=== PATIENT | female | born 1980 | race Hispanic/Latino ===

== ENCOUNTER 2019-12-06 09:12 | Outpatient (CLI) | payer OTHER ==
--- NOTE | 2019-12-06 10:47 | ULT ---
ULTRASOUND ABDOMEN: HISTORY: Right lower quadrant pain. FINDINGS: The liver demonstrates increased echogenicity consistent with fatty infiltration. No focal mass or i ntrahepatic dilatation is seen. The spleen is normal measuring 10.4 cm in length. No gallstones, ga llbladder wall thickening, or pericholecystic fluid is seen. The common duct measures 3 mm in diamet er. The kidneys and visualized portions of the pancreas, aorta, and IVC appear normal. No free flui d is seen. IMPRESSION: 1. Fatty liver. 2. No evidence of cholelithiasis. POS: OFF
== END 2019-12-06 09:13 | disposition home or self-care (01) ==
LOC: ULT 09:12
PROVIDERS: ATTEND Nurse Practitioner Family
DX: R10.31 Right lower quadrant pain (principal); K76.0 Fatty (change of) liver, not elsewhere classified
CPT/HCPCS: 93975

== ENCOUNTER 2024-08-11 14:45 | Outpatient (CLI) | payer OTHER | END 2024-08-11 14:46 | disposition home or self-care (01) | LOC: BICRAD 14:45 | PROVIDERS: ATTEND Family Medicine | DX: R76.12 Nonspecific reaction to cell mediated immunity measurement of gamma interferon antigen response without active tuberculosis (principal) | CPT/HCPCS: 71046 ==